=== PATIENT | male | born 1955 | race Caucasian/White ===

== ENCOUNTER 2019-02-06 12:00 | Emergency (ER) | payer MEDICARE, OTHER ==
[~2019-02-06] VITALS: Ht 185.4 cm; Wt 72.0 kg
[2019-02-06 12:20] VITALS: BP 125/83
== END 2019-02-06 12:58 | disposition home or self-care (01) ==
LOC: ED 12:35
DX: K02.9 Dental caries, unspecified (principal); J44.9 Chronic obstructive pulmonary disease, unspecified
CPT/HCPCS: 99282